=== PATIENT | female | born 1950 | race Hispanic/Latino ===

== ENCOUNTER 2019-04-16 17:00 | Emergency (ER) | payer MEDICARE ==
[2019-04-16] MEDS ORDERED: ULTRAM PO ONE (18:12)
--- NOTE | 2019-04-16 18:19 | Emergency Department Report ---
ED Extremity Problem HPI - General Chief complaint: Extremity Problem,Nontraumatic Stated complaint: GENERAL WEAKNESS Time Seen by Provider: 04/16/19 17:28 Source: patient, EMS Mode of arrival: Stretcher Limitations: Physical Limitation - History of Present Illness Initial comments: 68-year-old female presents to the emergency room complaining of bilateral knee pain. Patient reports that she has an extensive history of CVA, CAD osteoarthritis multiple falls. Patient has not taken anything for pain management. Patient reports that she is aware that she needs surgery on her knee but her surgeon does not feel that she is strong enough to have surgery. Patient denies any fever chills no falls within the last week. MD Complaint: extremity pain -: year(s) Location: bilateral lower extremity (knee) History of Same: Yes Quality: aching Consistency: constant Improves with: nothing Worsens with: weight bearing, walking - Related Data Previous Rx's Medication Instructions Recorded Last Taken Type guaiFENesin DM [Robitussin Dm] 10 ml PO Q4H PRN #1 bottle 04/06/16 Unknown Rx ALPRAZolam [Xanax TAB] 0.25 mg PO Q8H PRN #30 tablet 07/13/16 Unknown Rx AtorvaSTATin [Lipitor] 20 mg PO HS #30 tablet 07/13/16 Unknown Rx Clopidogrel [Plavix] 75 mg PO QDAY #30 tablet 07/13/16 Unknown Rx Famotidine [Pepcid] 20 mg PO BID #60 tablet 07/13/16 Unknown Rx HYDROcodone/APAP 7.5-325 [[place] 1 each PO Q6H PRN #30 tablet 07/13/16 Unknown Rx 7.5-325 mg TAB] Ipratropium/Albuter (Nf) 2 puff IH QID #1 inha 07/13/16 Unknown Rx [Combivent Inhaler] Ipratropium/Albuterol Sulfate 1 ampul IH Q6HRT #120 ampul.neb 07/13/16 Unknown Rx [DUONEB *Not for PRN Use*] Lidocaine [Lidoderm Patch] 1 each TP QDAY #30 adh..patch 07/13/16 Unknown Rx Metoprolol [Lopressor TAB] 50 mg PO BID #60 tablet 07/13/16 Unknown Rx rOPINIRole [Requip] 0.25 mg PO QPM #30 tablet 07/13/16 Unknown Rx traMADol [Ultram 50 MG tab] 50 mg PO Q6HR PRN #12 tablet 04/16/19 Unknown Rx Allergies Allergy/AdvReac Type Severity Reaction Status Date / Time No Known Allergies Allergy Verified 04/16/19 17:27 ED Review of Systems ROS: Stated complaint: GENERAL WEAKNESS Other details as noted in HPI Comment: All other systems reviewed and negative Constitutional: denies: chills, fever Eyes: denies: eye pain, eye discharge, vision change ENT: denies: ear pain, throat pain Respiratory: denies: cough, shortness of breath, wheezing Musculoskeletal: joint swelling, arthralgia ED Past Medical Hx - Past Medical History Previous Medical History?: Yes Hx Hypertension: Yes Hx CVA: Yes (L sided paralysis, residual) Hx Heart Attack/AMI: Yes Hx Arthritis: Yes Hx COPD: Yes Additional medical history: EMPHESYMA. CAD. Multiple falls - Surgical History Past Surgical History?: Yes Hx Coronary Stent: Yes (X 5) Hx Pacemaker: No Hx Cholecystectomy: Yes - Social History Smoking Status: Former Smoker Substance Use Type: None - Medications Home Medications: Home Medications Medication Instructions Recorded Confirmed Last Taken Type guaiFENesin DM [Robitussin Dm] 10 ml PO Q4H PRN #1 bottle 04/06/16 06/27/16 Unknown Rx ALPRAZolam [Xanax TAB] 0.25 mg PO Q8H PRN #30 tablet 07/13/16 Unknown Rx AtorvaSTATin [Lipitor] 20 mg PO HS #30 tablet 07/13/16 Unknown Rx Clopidogrel [Plavix] 75 mg PO QDAY #30 tablet 07/13/16 Unknown Rx Famotidine [Pepcid] 20 mg PO BID #60 tablet 07/13/16 Unknown Rx HYDROcodone/APAP 7.5-325 [[place] 1 each PO Q6H PRN #30 tablet 07/13/16 Unknown Rx 7.5-325 mg TAB] Ipratropium/Albuter (Nf) 2 puff IH QID #1 inha 07/13/16 Unknown Rx [Combivent Inhaler] Ipratropium/Albuterol Sulfate 1 ampul IH Q6HRT #120 ampul.neb 07/13/16 Unknown Rx [DUONEB *Not for PRN Use*] Lidocaine [Lidoderm Patch] 1 each TP QDAY #30 adh..patch 07/13/16 Unknown Rx Metoprolol [Lopressor TAB] 50 mg PO BID #60 tablet 07/13/16 Unknown Rx rOPINIRole [Requip] 0.25 mg PO QPM #30 tablet 07/13/16 Unknown Rx traMADol [Ultram 50 MG tab] 50 mg PO Q6HR PRN #12 tablet 04/16/19 Unknown Rx ED Physical Exam - General Limitations: Physical Limitation General appearance: alert, in no apparent distress - Head Head exam: Present: atraumatic, normocephalic - Eye Eye exam: Present: normal appearance - ENT ENT exam: Present: mucous membranes moist - Respiratory Respiratory exam: Present: normal lung sounds bilaterally. Absent: respiratory distress - Cardiovascular Cardiovascular Exam: Present: regular rate, normal rhythm. Absent: systolic murmur, diastolic murmur, rubs, gallop - GI/Abdominal GI/Abdominal exam: Present: soft, normal bowel sounds. Absent: distended, tenderness - Expanded Lower Extremity Exam Left Upper Leg exam: Present: normal inspection, full ROM Knee exam: Present: tenderness, swelling Neuro vascular tendon exam: Present: no vascular compromise Right Hip exam: Present: normal inspection, full ROM Upper Leg exam: Present: normal inspection. Absent: full ROM, tenderness Knee exam: Present: full ROM. Absent: tenderness, swelling, abrasion, laceration, ecchymosis, deformity, crepidus, dislocation, erythema, effusion Lower Leg exam: Present: full ROM. Absent: tenderness, swelling Ankle exam: Present: normal inspection, full ROM. Absent: tenderness, swelling - Neurological Exam Neurological exam: Present: alert, oriented X3 - Psychiatric Psychiatric exam: Present: depressed - Skin Skin exam: Present: warm, dry, intact, normal color. Absent: rash ED Course Vital Signs 04/16/19 17:20 Temperature 98.3 F Pulse Rate 78 Respiratory 16 Rate Blood Pressure 166/82 O2 Sat by Pulse 95 Oximetry ED Medical Decision Making - Medical Decision Making 68-year-old female presents to the emergency room complaining of bilateral knee pain. Patient reports that she has an extensive history of CVA, CAD osteoarthritis multiple falls. Patient has not taken anything for pain management. Patient reports that she is aware that she needs surgery on her knee but her surgeon does not feel that she is strong enough to have surgery. Patient denies any fever chills no falls within the last week. Patient will given tramadol for pain management. Critical care attestation.: If time is entered above; I have spent that time in minutes in the direct care of this critically ill patient, excluding procedure time. ED Disposition Clinical Impression: Chronic knee pain Qualifiers: Laterality: bilateral Qualified Code(s): M25.561 - Pain in right knee; M25.562 - Pain in left knee; G89.29 - Other chronic pain Disposition: TO HOME OR SELFCARE Is pt being admited?: No Does the pt Need Aspirin: No Condition: Stable Instructions: Arthralgia (ED) Additional Instructions: Take pain medication as needed. Please follow-up with her primary care provider to discuss pain management. Prescriptions: traMADol [Ultram 50 MG tab] 50 mg PO Q6HR PRN #12 tablet PRN Reason: Pain Referrals: Your,Provider [Other] - 3-5 Days
[2019-04-16] MEDS ORDERED: TYLENOL PO ONE (19:55)
[2019-04-17 02:09] VITALS: BP 159/73
== END 2019-04-16 20:05 | disposition home or self-care (01) ==
LOC: ED 17:00
DX: G89.29 Other chronic pain (principal); M25.561 Pain in right knee; M25.562 Pain in left knee; I10 Essential (primary) hypertension; I25.2 Old myocardial infarction; M19.90 Unspecified osteoarthritis, unspecified site; J43.9 Emphysema, unspecified; I25.10 Atherosclerotic heart disease of native coronary artery without angina pectoris; Z86.73 Personal history of transient ischemic attack (TIA), and cerebral infarction without residual deficits; Z98.890 Other specified postprocedural states; Z95.1 Presence of aortocoronary bypass graft; Z90.49 Acquired absence of other specified parts of digestive tract; Z87.891 Personal history of nicotine dependence; Z79.899 Other long term (current) drug therapy
CPT/HCPCS: 99283

== ENCOUNTER 2020-01-01 22:08 | Emergency (ER) | payer MEDICARE, OTHER ==
--- NOTE | 2020-01-01 22:43 | Emergency Department Report ---
ED General Adult HPI - General Chief complaint: Pain General Stated complaint: FEET ITCHING/BURNING Time Seen by Provider: 01/01/20 22:31 Source: patient, EMS Mode of arrival: Stretcher Limitations: Physical Limitation - History of Present Illness Initial comments: 69-year-old female, history of COPD, CAD, CVA, presents to ED requesting medication refill. Patient reports chronic pain to bilateral feet and legs. Patient reports she has had swelling to her left leg since her CVA 5 years ago which affected the left side. Patient reports she is had bilateral lower leg pain for several years and is in need of a bilateral knee replacement. Patient reports she does have bilateral foot pain x1 year with red spots on her feet that come and go over the past year. Also reports of fungus on the left lateral foot that has been present x1 year. Patient states he "never went away"despite using creams and oral antibiotics. Patient reports she is on Percocet for her chronic pain, which she ran out of 2 days ago. Patient is requesting a refill on her Percocet and "something to help me sleep because they say I have anxiety." -: year(s) (1) Location: left, right, lower extremity Quality: burning Consistency: constant Improves with: medication Worsens with: none Associated Symptoms: denies other symptoms - Related Data Previous Rx's Medication Instructions Recorded Last Taken Type guaiFENesin DM [Robitussin Dm] 10 ml PO Q4H PRN #1 bottle 04/06/16 Unknown Rx ALPRAZolam [Xanax TAB] 0.25 mg PO Q8H PRN #30 tablet 07/13/16 Unknown Rx AtorvaSTATin [Lipitor] 20 mg PO HS #30 tablet 07/13/16 Unknown Rx Clopidogrel [Plavix] 75 mg PO QDAY #30 tablet 07/13/16 Unknown Rx Famotidine [Pepcid] 20 mg PO BID #60 tablet 07/13/16 Unknown Rx HYDROcodone/APAP 7.5-325 [[place] 1 each PO Q6H PRN #30 tablet 07/13/16 Unknown Rx 7.5-325 mg TAB] Ipratropium/Albuter (Nf) 2 puff IH QID #1 inha 07/13/16 Unknown Rx [Combivent Inhaler] Ipratropium/Albuterol Sulfate 1 ampul IH Q6HRT #120 ampul.neb 07/13/16 Unknown Rx [DUONEB *Not for PRN Use*] Lidocaine [Lidoderm Patch] 1 each TP QDAY #30 adh..patch 07/13/16 Unknown Rx Metoprolol [Lopressor TAB] 50 mg PO BID #60 tablet 07/13/16 Unknown Rx rOPINIRole [Requip] 0.25 mg PO QPM #30 tablet 07/13/16 Unknown Rx traMADoL [Ultram 50 MG tab] 50 mg PO Q6HR PRN #12 tablet 04/16/19 Unknown Rx Allergies Allergy/AdvReac Type Severity Reaction Status Date / Time No Known Allergies Allergy Verified 04/16/19 17:27 ED Review of Systems ROS: Stated complaint: FEET ITCHING/BURNING Other details as noted in HPI Comment: All other systems reviewed and negative Musculoskeletal: as per HPI ED Past Medical Hx - Past Medical History Hx Hypertension: Yes Hx CVA: Yes (L sided paralysis, residual) Hx Heart Attack/AMI: Yes Hx Arthritis: Yes Hx COPD: Yes Additional medical history: EMPHESYMA. CAD. Multiple falls - Surgical History Hx Coronary Stent: Yes (X 5) Hx Pacemaker: No Hx Cholecystectomy: Yes - Social History Smoking Status: Former Smoker Substance Use Type: None - Medications Home Medications: Home Medications Medication Instructions Recorded Confirmed Last Taken Type guaiFENesin DM [Robitussin Dm] 10 ml PO Q4H PRN #1 bottle 04/06/16 06/27/16 Unknown Rx ALPRAZolam [Xanax TAB] 0.25 mg PO Q8H PRN #30 tablet 07/13/16 Unknown Rx AtorvaSTATin [Lipitor] 20 mg PO HS #30 tablet 07/13/16 Unknown Rx Clopidogrel [Plavix] 75 mg PO QDAY #30 tablet 07/13/16 Unknown Rx Famotidine [Pepcid] 20 mg PO BID #60 tablet 07/13/16 Unknown Rx HYDROcodone/APAP 7.5-325 [[place] 1 each PO Q6H PRN #30 tablet 07/13/16 Unknown Rx 7.5-325 mg TAB] Ipratropium/Albuter (Nf) 2 puff IH QID #1 inha 07/13/16 Unknown Rx [Combivent Inhaler] Ipratropium/Albuterol Sulfate 1 ampul IH Q6HRT #120 ampul.neb 07/13/16 Unknown Rx [DUONEB *Not for PRN Use*] Lidocaine [Lidoderm Patch] 1 each TP QDAY #30 adh..patch 07/13/16 Unknown Rx Metoprolol [Lopressor TAB] 50 mg PO BID #60 tablet 07/13/16 Unknown Rx rOPINIRole [Requip] 0.25 mg PO QPM #30 tablet 07/13/16 Unknown Rx traMADoL [Ultram 50 MG tab] 50 mg PO Q6HR PRN #12 tablet 04/16/19 Unknown Rx ED Physical Exam - General Limitations: Physical Limitation General appearance: alert, in no apparent distress - Head Head exam: Present: atraumatic, normocephalic - Eye Eye exam: Present: normal appearance, EOMI - ENT ENT exam: Present: mucous membranes moist - Neck Neck exam: Present: normal inspection - Respiratory Respiratory exam: Present: normal lung sounds bilaterally. Absent: respiratory distress - Cardiovascular Cardiovascular Exam: Present: regular rate, normal rhythm - GI/Abdominal GI/Abdominal exam: Absent: distended - Extremities Exam Extremities exam: Present: other (mild swelling present in left foot; dry, scaly, fungal appearance of left lateral foot; no erythema present; sensation intact, DP pulses intact, feet are warm bilaterally, cap refill normal) - Neurological Exam Neurological exam: Present: alert, oriented X3 - Psychiatric Psychiatric exam: Present: normal affect, normal mood - Skin Skin exam: Present: warm, dry, intact ED Course Vital Signs 01/01/20 22:29 Temperature 98.0 F Pulse Rate 80 Respiratory 18 Rate Blood Pressure 176/72 O2 Sat by Pulse 98 Oximetry ED Medical Decision Making - Medical Decision Making Pt has no emergent medical condition at this time. Condition is ongoing for at least 1 year now. She is advised to follow up with her PCP. - Differential Diagnosis chronic pain Critical care attestation.: If time is entered above; I have spent that time in minutes in the direct care of this critically ill patient, excluding procedure time. ED Disposition Clinical Impression: Chronic pain, Medication refill Disposition: MED SCREENING EXAM-LEFT Is pt being admited?: No Condition: Stable Instructions: Chronic Pain (ED) Referrals: PRIMARY CARE, [Primary Care Provider] - 3-5 Days Time of Disposition: 22:44
[2020-01-02 01:07] VITALS: BP 166/79
== END 2020-01-02 01:08 | disposition left against medical advice (07) ==
LOC: ED 22:08
DX: G89.29 Other chronic pain (principal); I10 Essential (primary) hypertension; I25.2 Old myocardial infarction; J44.9 Chronic obstructive pulmonary disease, unspecified; M13.88 Other specified arthritis, other site; Z86.73 Personal history of transient ischemic attack (TIA), and cerebral infarction without residual deficits; Z95.818 Presence of other cardiac implants and grafts; Z90.49 Acquired absence of other specified parts of digestive tract; Z76.0 Encounter for issue of repeat prescription; Z87.891 Personal history of nicotine dependence